=== PATIENT | male | born 1965 | race Caucasian/White ===

== ENCOUNTER 2019-02-15 14:46 | Emergency (ER) | payer BC, OTHER ==
[2019-02-15] MEDS ORDERED: HYDROmorphone 1 MG/ML Syringe IM ONE (15:00)
[2019-02-15] MEDS ORDERED: methylPREDNISolone Sodium Succinate 125 MG/2 ML SDV IM ONE (15:00)
--- NOTE | 2019-02-15 15:33 | EDM.PDOC ---
ED HPI GENERAL MEDICAL PROBLEM - General Chief Complaint: Back Pain or Injury Stated Complaint: BACK INJURY Time Seen by Provider: 02/15/19 14:52 Source of Information: Reports: Patient History Limitations: Reports: No Limitations - History of Present Illness INITIAL COMMENTS - FREE TEXT/NARRATIVE: HISTORY AND PHYSICAL: History of present illness: Patient is a 53-year-old male who presents to the emergency room today with complaints of lumbar back pain that radiates down his right lower extremity. He states that this pain has been ongoing for approximately one week. He was seen at [facility] and given a prescription for prednisone, Flexeril and Trumbull. He states he has been taking these medications and it has not alleviated any of his discomfort. He states that the pain is to his low lumbar back and radiates down his right lower extremity. He does have some numbness, tingling and sharp stabbing pain. He is ambulatory without any weakness or deficits. He denies any urinary or fecal incontinence. He is here today hoping to have an MRI done of his lumbar spine. Patient denies any fever, chills, headache, change in vision, syncope or near syncope. Denies any chest pain, shortness of breath or cough. Denies any GI or symptoms. Patient has been eating and drinking appropriately. Review of systems: As per history of present illness and below otherwise all systems reviewed and negative. Past medical history: As per history of present illness and as reviewed below otherwise noncontributory. Surgical history: As per history of present illness and as reviewed below otherwise noncontributory. Social history: See social history for further information Family history: As per history of present illness and as reviewed below otherwise noncontributory. Physical exam: General: Well-developed and well-nourished 53-year-old male. Alert and oriented. Nontoxic appearing and in no acute distress. HEENT: Atraumatic, normocephalic, pupils equal and reactive bilaterally, negative for conjunctival pallor or scleral icterus, mucous membranes moist, trachea midline. No drooling or trismus noted. No meningeal signs. No hot potato voice noted. Lungs: Clear to auscultation, breath sounds equal bilaterally, chest nontender. Heart: S1S2, regular rate and rhythm without overt murmur Abdomen: Soft, nondistended, nontender. Negative for masses or hepatosplenomegaly. Negative for costovertebral tenderness. Pelvis: Stable nontender. C-spine/Back: No pinpoint vertebral tenderness upon palpation. No crepitus, step -offs or obvious deformities. Patient is ambulatory into the emergency room without difficulty or deficit. Able to rock back on heels and walk on toes. Denies any urinary or fecal incontinence. Denies any numbness, tingling or saddle paresthesia. Skin: Intact, warm, dry. No lesions or rashes noted. Extremities: Atraumatic, moves all extremities per self without difficulty or deficits, negative for cords or calf pain. Neurovascular unremarkable. Neuro: Awake, alert, oriented. Cranial nerves II through XII unremarkable. Cerebellum unremarkable. Motor and sensory unremarkable throughout. Exam nonfocal. Notes: Patient is agreeable to x-ray, although dissatisfied that he isn't getting an MRI done today. He is neurologically intact. X-ray shows degenerative changes of the lumbar spine. Patient did feel relief with the medication. Initially he was taking one tablet of his Trumbull every 6 hours. I did inform him that he could take 1-2 of these every 4 hours as needed. We'll give him a referral to orthopedics if he continues to want an MRI done. Supportive care measures were reviewed and discussed. Voices understanding and is agreeable to plan of care. Denies any further questions or concerns at this time. Diagnostics: Lumbar Spine xray Therapeutics: Dilaudid IM, Solu-Medrol Prescription: None Impression: Lumbar back pain with sciatica Plan: 1. The medication you received today does cause drowsiness, so do not drive for the remaining day 2. When resting please lay on a flat firm surface. Limit your immobility to prevent muscle stiffness. Get up to ambulate/move around/gentle stretching multiple times throughout the day. May alternate heat and ice to the painful areas 3. You make take 1-2 tabs of the Trumbull every 4 hours as need for pain relief. Continue taking the other medications as directed. 4. Please follow-up with your primary care provider as we discussed. Return to the ED as needed and as discussed. Definitive disposition and diagnosis as appropriate pending reevaluation and review of above. back Pain Score (Numeric/FACES): 10 - Related Data Allergies Allergy/AdvReac Type Severity Reaction Status Date / Time No Known Allergies Allergy Verified 02/15/19 14:52 Home Meds: Home Meds . [Unable to Verify Home Med List] 02/15/19 [History] Past Medical History - Past Health History Medical/Surgical History: Denies Medical/Surgical History Musculoskeletal History: Reports: Back Pain, Chronic Immunologic History: Reports: None - Infectious Disease History Infectious Disease History: Reports: None - Past Surgical History HEENT Surgical History: Reports: Tonsillectomy Social & Family History - Family History Family Medical History: Noncontributory - Tobacco Use Smoking Status *Q: Never Smoker - Caffeine Use Caffeine Use: Reports: Tea - Recreational Drug Use Recreational Drug Use: No ED ROS GENERAL - Review of Systems Review Of Systems: Comprehensive ROS is negative, except as noted in HPI. ED EXAM,LOWER BACK PAIN/INJURY - Physical Exam Exam: See Below (See dictation) Course - Vital Signs Last Recorded V/S: Last Vital Signs Temp 97.3 F 02/15/19 14:49 Pulse 87 02/15/19 14:49 Resp 20 02/15/19 14:49 BP 163/86 H 02/15/19 14:49 Pulse Ox 94 L 02/15/19 14:49 - Orders/Labs/Meds Meds: Medications Discontinued Medications Generic Name Dose Route Start Last Admin Trade Name Freq PRN Reason Stop Dose Admin Hydromorphone HCl 1 mg 02/15/19 15:00 Dilaudid IM 02/15/19 15:01 ONETIME ONE Methylprednisolone Sodium Succinate 125 mg 02/15/19 15:00 Solu-Medrol IM 02/15/19 15:01 ONETIME ONE Departure - Departure Time of Disposition: 15:46 Disposition: Home, Self-Care 01 Clinical Impression: Back pain of lumbar region with sciatica - Discharge Information Instructions: Sciatica, [id number] Referrals: Vickey Ponce MD [Primary Care Provider] - Forms: ED Department Discharge Additional Instructions: The following information is given to patients seen in the emergency department who are being discharged to home. This information is to outline your options for follow-up care. We provide all patients seen in our emergency department with a follow-up referral. The need for follow-up, as well as the timing and circumstances, are variable depending upon the specifics of your emergency department visit. If you don't have a primary care physician on staff, we will provide you with a referral. We always advise you to contact your personal physician following an emergency department visit to inform them of the circumstance of the visit and for follow-up with them and/or the need for any referrals to a consulting specialist. The emergency department will also refer you to a specialist when appropriate. This referral assures that you have the opportunity for follow-up care with a specialist. All of these measure are taken in an effort to provide you with optimal care, which includes your follow-up. Under all circumstances we always encourage you to contact your private physician who remains a resource for coordinating your care. When calling for follow-up care, please make the office aware that this follow-up is from your recent emergency room visit. If for any reason you are refused follow-up, please contact the [facility] Emergency Department at and asked to speak to the emergency department charge nurse. [facility] [address] [place] [id number] [facility] [address] [place] [id number] 1. The medication you received today does cause drowsiness, so do not drive for the remaining day 2. When resting please lay on a flat firm surface. Limit your immobility to prevent muscle stiffness. Get up to ambulate/move around/gentle stretching multiple times throughout the day. May alternate heat and ice to the painful areas 3. You make take 1-2 tabs of the Trumbull every 4 hours as need for pain relief. Continue taking the other medications as directed. 4. Please follow-up with your primary care provider as we discussed. Return to the ED as needed and as discussed.
--- NOTE | 2019-02-15 15:36 | CR ---
Indication: Chronic back pain. Technique: Three views of the lumbar spine were obtained. Comparison: None Findings: Straightening of the normal lumbar lordosis is identified. The vertebral body heights are well maintained. Intervertebral disc space narrowing is identified at L4-L5 and L5-S1. Facet joint arthropathy of the lumbar spine is identified. Impression: Degenerative changes of the lumbar spine. Dictated by Harleen Quintero MD @ Feb 15 2019 3:33PM Signed by Dr. Harleen Quintero @ Feb 15 2019 3:34PM
== END 2019-02-15 16:15 | disposition home or self-care (01) ==
LOC: MW.ED 14:46
DX: M54.41 Lumbago with sciatica, right side (principal)
CPT/HCPCS: 72100; 96372; 99283; J1170; J2930

== ENCOUNTER 2023-07-05 09:15 | Emergency (ER) | payer BC | END 2023-07-05 09:53 | disposition home or self-care (01) | LOC: MW.ED 09:15 | DX: M79.89 Other specified soft tissue disorders (principal); M79.674 Pain in right toe(s); Z75.8 Other problems related to medical facilities and other health care; Z79.899 Other long term (current) drug therapy | CPT/HCPCS: 99283 ==

== ENCOUNTER 2023-07-19 12:50 | Emergency (ER) | payer BC | END 2023-07-19 14:00 | disposition home or self-care (01) | LOC: MW.ED 12:50 | DX: M79.674 Pain in right toe(s) (principal); Z79.899 Other long term (current) drug therapy | CPT/HCPCS: 99283 ==